=== PATIENT | female | born 1990 | race Caucasian/White ===

== ENCOUNTER 2020-12-08 21:01 | Emergency (ER) | payer MEDICAID ==
[~2020-12-08] VITALS: Ht 167.6 cm; Wt 66.6 kg
[~2020-12-08 21:01] MED LIST: METF100010 PO
[2020-12-08] MEDS ORDERED: methylPREDNISolone SOD SUCC 40 MG/ML ONE (21:27)
[2020-12-08] MEDS ORDERED: DIPHENHYDRAMINE 50 MG/ML, 1ML ONE (21:27)
[2020-12-08] MEDS ORDERED: FAMOTIDINE 20 MG/2 ML ONE (21:29)
[2020-12-08] MEDS ORDERED: methylPREDNISolone SOD SUCC 125 MG/2 ML IVPush ONE (21:30)
[2020-12-08] MEDS ORDERED: DIPHENHYDRAMINE 50 MG/ML, 1ML IVPush ONE (21:30)
[2020-12-08] MEDS ORDERED: FAMOTIDINE 20 MG/2 ML IVPush ONE (21:30)
--- NOTE | 2020-12-08 22:31 | NUR ---
Assist RN: re-evaluation done. patient feeling much better. discharged with prescriptions and instruction. verbalized understanding.
[2020-12-08 22:32] VITALS: BP 100/55
== END 2020-12-08 22:34 | disposition home or self-care (01) ==
LOC: ED 21:30
DX: R21 Rash and other nonspecific skin eruption (principal); T78.40XA Allergy, unspecified, initial encounter; R06.00 Dyspnea, unspecified; F17.210 Nicotine dependence, cigarettes, uncomplicated
CPT/HCPCS: 96374; 96375; 99284; J1200; J2930